=== PATIENT | male | born 1950 | race Caucasian/White ===

== ENCOUNTER 2018-01-11 10:55 | Observation (INO) | payer OTHER, MEDICARE ==
[~2018-01-11] VITALS: Ht 167.6 cm; Wt 118.4 kg
[2018-01-11 10:55] VITALS: BP 158/72
[~2018-01-11 10:55] MED LIST: ASTELIN137 MCG; FLONASE16 GM; LISINOPRIL10 MG PO; TESTOSTERONE INJ; ULORIC40 MG PO; ZYRTEC10 M3 PO
[2018-01-11 11:44] VITALS: BP 158/72
[2018-01-11] MEDS ORDERED: SODIUM CHLORIDE 0.9% 250ML 250 ML IV ONE (12:00)
[2018-01-11 13:54] VITALS: BP 158/72
[2018-01-11 15:22] VITALS: BP 132/73
[2018-01-11] MEDS ORDERED: SODIUM CHLORIDE 0.9% 250ML 250 ML ONE ×3 (17:11→20:17)
[2018-01-11] MEDS ORDERED: ULORIC40 MG PO (19:25)
[2018-01-11] MEDS ORDERED: DILTIAZEM 24HR180 MG PO (19:25)
[2018-01-11] MEDS ORDERED: LOSARTAN POTAS100 MG PO (19:25)
[2018-01-11] MEDS ORDERED: PANTOPRAZOLE SO40 MG PO (19:25)
[2018-01-11 20:00] VITALS: BP 141/68
[2018-01-11] MEDS ORDERED: DILTIAZEM HCL 180 MG CAP CD PO SCH (21:00)
[2018-01-11] MEDS ORDERED: DILTIAZEM HCL 120 MG CAP CD PO SCH (21:00)
[2018-01-11 23:47] VITALS: BP 133/70
[2018-01-12] VITALS: BP 116/69
[2018-01-12 06:04] LABS: HEMATOCRIT 24.6 % (38.2-49.6); HEMOGLOBIN 7.2 g/dL (14.0-18.0)
[2018-01-12 07:50] VITALS: BP 106/55
[2018-01-12] MEDS ORDERED: SODIUM CHLORIDE 0.9% 250ML 250 ML IV ONE (08:15)
[2018-01-12] MEDS ORDERED: PANTOPRAZOLE SOD 40 MG TABEC PO SCH (09:00)
[2018-01-12] MEDS ORDERED: LOSARTAN POTASSIUM 100 MG TAB PO SCH (09:00)
[2018-01-12] MEDS ORDERED: FEBUXOSTAT 80 MG TAB PO SCH (09:00)
[2018-01-12 11:42] VITALS: BP 152/68
[2018-01-12 15:26] VITALS: BP 133/67
--- NOTE | 2018-01-12 16:03 | Consultation ---
DATE OF CONSULTATION: January 12, 2018 REFERRING PHYSICIAN: Dr. Jose Taveras HISTORY OF PRESENT ILLNESS: Patient is a 67-year-old male who was admitted to the hospital with anemia. Apparently he had, years ago, an upper GI endoscopy that revealed an atypical lesion in the esophagus and per GI had refused follow up. Now he has some dysphagia and has been found to have a hemoglobin of 6. He has been transfused. He has not had any vomiting of blood and not noticed any gross blood in his stool. PAST MEDICAL HISTORY: Significant for hypertension, chronic obstructive pulmonary disease. He has had previous cholecystectomy and repair of inguinal hernia. ALLERGIES: TO PENICILLIN, CIPRO, CODEINE, HYDROCODONE, IODINE, OXYCODONE AND BACTRIM. MEDICATIONS: At home are azelastine, cetirizine, Diltiazem, Uloric, Flonase, lisinopril, losartan, Protonix, testosterone. FAMILY HISTORY: Noncontributory. SOCIAL HISTORY: The patient is . Does not smoke cigarettes or drink alcohol. REVIEW OF SYSTEMS: Is as stated above. He has had no fever, no weight loss. PHYSICAL EXAMINATION GENERAL: The patient is awake and alert, in no distress. VITAL SIGNS: Normal. HEENT: Reveals no scleral icterus. NECK: Has no masses. LUNGS: Equal breath sounds and clear bilaterally. CARDIAC: Regular rate and rhythm. ABDOMEN: Soft. There is no tenderness, no mass, no organomegaly. EXTREMITIES: No edema. NEUROLOGIC: Grossly intact. LABORATORY DATA: Hemoglobin is 7.2, hematocrit 24.6. ASSESSMENT: A 67-year-old male with carcinoma of esophagus per recent upper GI endoscopy after discussions with Dr. Taveras. This was discussed with the patient and he wishes to be treated at the [facility]. He is to be transfused and if he is stable will likely follow up with his PCP for referral down to the [facility]. Thank you asking see me to see Mr. Bergeron. Job#: [id number] MARISOL
[2018-01-12 16:56] LABS: BASOPHILS % 0.6 % (0.0-1.0); EOSINOPHILS # (AUTO) 0.1 (0.0-0.4); EOSINOPHILS % 2.6 % (0.0-6.0); HEMATOCRIT 29.6 % (38.2-49.6); HEMOGLOBIN 8.9 g/dL (14.0-18.0); LYMPHOCYTES # (AUTO) 1.4 (1.0-3.2); MEAN CORPUSCULAR HEMOGLOBIN 23.3 pg (28-32); MEAN CORPUSCULAR HGB CONC 30.1 g/dL (31-35); MEAN CORPUSCULAR VOLUME 77.5 fL (81-99); MONOCYTES # (AUTO) 0.5 (0.2-0.8); MONOCYTES % 9.8 % (4.4-11.3); NEUTROPHILS # (AUTO) 3.1 (2.1-6.9); NEUTROPHILS % 59.2 % (38.7-80.0); PLATELET COUNT 185 x10e3/uL (140-360); RED BLOOD COUNT 3.82 x10e6/uL (4.3-5.7); RED CELL DISTRIBUTION WIDTH 16.5 % (11.7-14.4)
[2018-01-12 17:12] LABS: ANION GAP 10.9 mmol/L (8-16); CALCIUM 9.1 mg/dL (8.4-10.2); CREATININE, SERUM 1.48 mg/dL (0.72-1.25); POTASSIUM 4.9 mmol/L (3.5-5.1)
== END 2018-01-12 18:30 | disposition home or self-care (01) ==
LOC: IMCU 10:55
PROVIDERS: ADMIT Internal Medicine Gastroenterology; ATTEND Internal Medicine Gastroenterology
DX: C15.9 Malignant neoplasm of esophagus, unspecified (principal); D63.0 Anemia in neoplastic disease
CPT/HCPCS: 36415; 36430; 80048; 85014; 85018; 85025; 86850; 86900; 86920; G0378 ×2; J7050 ×2; P9016 ×2; S0164